=== PATIENT | male | born 1965 | race Two or more races ===

== ENCOUNTER 2024-07-11 10:03 | Emergency (ER) | payer OTHER ==
[~2024-07-11] VITALS: Ht 172.7 cm; Wt 56.7 kg
[2024-07-11] MEDS ORDERED: CLONIDINE HCL0.1 MG PO (10:22)
[2024-07-11] MEDS ORDERED: CLONIDINE HCL 0.1 MG TABLET PO ONE ×2 (11:14→11:45)
[2024-07-11] MEDS ORDERED: LORazepam 2 MG/ML VIAL IV ONE (11:45)
[2024-07-11] MEDS ORDERED: LORazepam 1 MG TABLET PO ONE ×2 (11:45)
[2024-07-11] MEDS ORDERED: 0.9 % SODIUM CHLORIDE 500 ML IV SCH (11:45)
[2024-07-11 11:57] LABS: HEMATOCRIT 44.4 % (39.0-48.0); HEMOGLOBIN 15.2 g/dL (13-16.00); MEAN CELL VOLUME 98.2 fL (80.0-100.00); MEAN CORPUSCULAR HEMOGLOBIN 33.7 pg (27.00-32.0); MEAN CORPUSCULAR HGB CONC 34.3 g/dl (32.0-36.0); PLATELET COUNT 230 K/uL (150-450); RED BLOOD COUNT 4.52 M/uL (4.00-6.00)
[2024-07-11 12:23] LABS: INR 0.98; PARTIAL THROMBOPLASTIN TIME 28.1 SECONDS (22.0-34.0); PROTHROMBIN TIME 10.7 SECONDS (9.0-11.5)
[2024-07-11 12:37] LABS: ALBUMIN 4.2 gm/dL (3.4-5.0); BILIRUBIN TOTAL 1.47 mg/dL (0.3-1.2); BILIRUBIN,CONJUGATED 0.35 mg/dL (0.0-0.2); BILIRUBIN,UNCONJUGATED 1.12 mg/dL (0.0-0.6); CREATININE SERUM 0.92 mg/dL (0.70-1.30); GFR 84.2; GLOBULINA 4.2 G/DL (2.4-3.5); POTASSIUM 3.32 mEq/L (3.5-5.1); TOTAL PROTEIN 8.4 gm/dL (6.4-8.2)
[2024-07-11 15:22] VITALS: BP 137/86; O2SAT 100
== END 2024-07-11 16:14 | disposition home or self-care (01) ==
LOC: ER 10:04
PROVIDERS: General Practice
DX: I10 Essential (primary) hypertension (principal); F10.20 Alcohol dependence, uncomplicated